=== PATIENT | male | born 1975 | race Caucasian/White ===

== ENCOUNTER 2016-10-25 18:54 | Inpatient (IN) | payer BC, OTHER ==
[~2016-10-25] VITALS: Ht 180.3 cm; Wt 69.4 kg
--- NOTE | 2016-10-25 19:58 | NUR ---
1956 PREADMISSION NOTE: 41 year old, well-nourished caucasion male seen in [facility], hugging 2 friends good-bye. Patient responds to nurse's greeting and introduction, with a handshake and, " I don't belong here really. I just drank for 3 days and my friends brought me here. I'm not drunk!" Patient denies any pre-existing medical or psychiatric history but he states that, " I had a focal seizure on a airplane, in 1999, brought on by anxiety. That's the only one". Patient denies any food or medication allergies and he states that he has brought no medications or contraband from home, nor is he taking any medications at home. Vital signs are: 98-101-18 119/88, O2 Sat 97%. Explanation given to patient about [facility] floor protocols. Patient is able to answer nurse's assess questions with some prompting and repeating of some questions, though he reeks of alcohol and is easily irritated, at which point, he curses and yells at nurse, before being redirected easily. Patient then takes nurse's hand and states, " Oh, I/m sorry to give you a hard time". Patient is presently stable enough to be admitted to [facility].
[2016-10-25 20:00] VITALS: BP 98/64
--- NOTE | 2016-10-25 20:12 | NUR ---
2011 ADMISSION NOTE: Patient admitted ambulatory from Intake to [facility] floor, room # 325. Gait is steady. Patient is oriented to person and reoriented easily to place, day, date, time and his personal situation. Patient states, " I don't know why I'm here. I've only been drinking for 3 days. I mean, really, I'm not drunk!". My friends brought me to the hospital just because they saw me drinking for 3 days!" Patient's color is pink and his skin is clean, warm, dry and intact. Lung sounds are clear bilaterally and active bowel sounds are noted X 4 abdominal Quads, per auscultation. Patient moves all his extremities fully WNL. Patient denies any pain or other discomforts at this time. Patient is 5 feet and 11 inches tall and he weighs 153 lbs, he states. Vital signs are 97.5-102-20 98/64, CIWA 11. Patient states that he has no PCP at this time and he denies any food or medication allergies. Patient is admitted for Alcohol withdrawal and he is is currently on PRN medications only, for any withdrawal symptoms per MD orders. Patient states that he has been drinking " a bottle of wine everyday for 3 days, though he is unable to specify exactly how much wine is in each bottle. He states that he last had " a bottle of wine this evening. Patient states that he his longest period of sobriety was 3 years, from 2011 to 2014, though he is unable to state just how long he has been drinking alcohol. Patient states, " Well, I had my first drink at age 22, that's all I know". Patient states that this is he has never been admitted to any treatment facility before today. Patient is overall moderately inebriated and he reeks of alcohol smell. He is able to maintain eye contact adequately when interacting with nurse, though he gets unnecessarily loud and curses and yells at nurse easily depending on assess questions he is asked. Patient states loudly and frequently, " Why are you asking me these stupid, intrusive, ridiculous questions!?" Patient noted to be very fidgety, anxious, easily agitated and emotionally labile at this time. Patient oriented to his immediate surroundings and nurse call light. Patient states that he has brought no medications with him and he denies taking any medications at home. Patient states loudly, " Hey, I am healthy!" Bed is locked and in lowest position, bed rails put up X 2 and call light within patient's easy reach.
[2016-10-25 20:39] LABS: *AMPHETAMINE, URINE NEGATIVE (NEGATIVE); *BARBITURATE, URINE NEGATIVE (NEGATIVE); *CANNABINOID, URINE NEGATIVE (NEGATIVE); *COCCAINE, URINE NEGATIVE (NEGATIVE); *OPIATE, URINE NEGATIVE (NEGATIVE); *PHENCYCLIDINE SCREEN,URINE NEGATIVE (NEGATIVE)
[2016-10-25] MEDS ORDERED: LOPERAMIDE HCL 2 MG CAPSULE PO PRN ×2 (20:45)
[2016-10-25] MEDS ORDERED: ONDANSETRON ODT 4 MG TAB.RAPDIS SL PRN (20:45)
[2016-10-25] MEDS ORDERED: DICYCLOMINE HCL 20 MG TABLET PO PRN (20:45)
[2016-10-25] MEDS ORDERED: ACETAMINOPHEN 325 MG TABLET PO PRN (20:45)
[2016-10-25] MEDS ORDERED: THIAMINE HCL 200 MG/2 ML VIAL IM ONE (20:45)
[2016-10-25] MEDS ORDERED: LORAZEPAM 1 MG TABLET PO PRN (20:45)
[2016-10-25] MEDS ORDERED: MAGNESIUM HYDROXIDE 30 ML LIQUID UDC PO PRN (20:45)
[2016-10-25] MEDS ORDERED: LORAZEPAM 2 MG/1 ML VIAL IM PRN (20:45)
[2016-10-25] MEDS ORDERED: IBUPROFEN 400 MG TABLET PO PRN (20:45)
[2016-10-25] MEDS ORDERED: MIRALAX 17 GM POWD.PACK PO PRN (20:45)
[2016-10-25] MEDS ORDERED: MAG HYDROX/AL HYDROX/SIMETH 30 ML LIQUID UDC PO PRN (20:45)
[2016-10-25 21:41] LABS: BASOPHILS # (AUTO) 0.1 K/uL (0.0-8.0); BASOPHILS % (AUTO) 0.9 % (0.0-2.0); EOSINOPHILS # (AUTO) 0.1 K/uL (0.0-0.7); EOSINOPHILS % (AUTO) 0.8 % (0.0-7.0); HEMATOCRIT 41.6 % (40-50); HEMOGLOBIN 14.5 G/DL (14.0-18.0); LYMPHOCYTES # (AUTO) 2.2 K/UL (0.8-4.8); MEAN CORPUSCULAR HGB CONC 35 g/dL (32.0-37.0); MEAN CORPUSCULAR VOLUME 86.2 FL (82.0-92.0); MONOCYTES # (AUTO) 0.6 K/UL (0.1-1.30); MONOCYTES % (AUTO) 8.1 % (0.0-11.0); NEUTROPHILS # (AUTO) 4.3 K/UL (1.8-8.9); NEUTROPHILS % (AUTO) 60.2 % (38.5-71.5); PLATELET COUNT (AUTO) 190 K/UL (150-450); RED BLOOD CELL COUNT(AUTO) 4.82 MIL/UL (4.7-6.1); WHITE BLOOD COUNT (AUTO) 7.3 K/UL (4.0-11.2)
[2016-10-25] MEDS: CLONIDINE HCL 0.1 MG TABLET PO PRN (21:58)
[2016-10-25 21:59] LABS: BILIRUBIN,TOTAL 0.2 mg/dL (0.2-1.0); CREATININE 0.8 mg/dL (0.6-1.3); MAGNESIUM 2.1 mg/dL (1.8-2.4); POTASSIUM 4.4 mmol/L (3.5-5.1); TOTAL PROTEIN, SERUM 7.5 g/dL (6.4-8.2)
[2016-10-25] MEDS: HYDROXYZINE PAMOATE 25 MG CAPSULE PO PRN (21:59)
[2016-10-25] MEDS ORDERED: HYDROXYZINE PAMOATE 25 MG CAPSULE ONE (22:07)
[2016-10-25] MEDS ORDERED: CLONIDINE HCL 0.1 MG TABLET ONE (22:07)
[2016-10-25 22:08] LABS: THYROID STIMULATING HORMONE 2.023 mIU/mL (0.358-3.740)
[2016-10-25] MEDS: diphenhydrAMINE 50 MG CAPSULE PO PRN (22:40)
[2016-10-25] MEDS ORDERED: LORAZEPAM 1 MG TABLET ONE (22:47)
[2016-10-25] MEDS ORDERED: diphenhydrAMINE 50 MG CAPSULE ONE (22:47)
[2016-10-26] VITALS: BP 101/61
[2016-10-26 04:00] VITALS: BP 115/66
--- NOTE | 2016-10-26 06:30 | NUR ---
0630 Patient slept a total of 6 hours and he had 1 void and no stools. Total intake was 500 ml p.o. Prn medications given noted separately per floor protocol. V/SS afebrile, CIWA at 0400 is 6. Patient is presently sleeping soundly with eyes closed and respirations deep, regular, stenorous and unlabored at 12.
--- NOTE | 2016-10-26 07:05 | NUR ---
Patient is awake and downstairs on hospital patio to have a smoke. Unable to assess CIWA at this time.
--- NOTE | 2016-10-26 07:10 | NUR ---
Start Of Shift Report received from coal sample tester RN Pt is a 41 y/o male admitted for ETOH. Pt is full code regular diet on fall and seizure precautions, pt reported a seizure 17 years ago denies any food or drug allergies.Pt denies any PMH. pt is currently not on a taper but has PRN medications in case of withdrawal symptoms. Pts last CIWA is 6 taken at 0400. Pt received PRN Ativan 2mg due to withdrawal symptoms. Medication effective per coal sample tester nurse. Pt also received PRN clonidine Vistaril and Benadryl, medications effective per coal sample tester RN. Pt slept a total of 6 hours. Patient received awake, alert and oriented x4, educated regarding plan of care for the day and medication regimen. All safety measures in place, call light kept within reach, will continue to monitor and provide support.
[2016-10-26 08:00] VITALS: BP 124/87
[2016-10-26] MEDS: LORAZEPAM 1 MG TABLET PO PRN ×3 (08:54→20:21)
[2016-10-26] MEDS: THIAMINE HCL 100 MG TABLET PO SCH (08:54)
[2016-10-26] MEDS: FOLIC ACID 1 MG TABLET PO SCH (08:54)
[2016-10-26] MEDS: MULTIVITAMINS,THERAPEUTIC TABLET PO SCH (08:54)
--- NOTE | 2016-10-26 08:54 | NUR ---
PRN MEDICATION Pt c/o Anxiety presented with agitation and restlessness CIWA 10 requested something for relief, non-pharmacological techniques interventions provided x3 and were not effective. PRN Ativan 1mg administered PO, educated pt about s/e of medication and when to contact nurse. all needs met, all safety measures in place, will continue to monitor.
[2016-10-26] MEDS ORDERED: TUBERCULIN,PURIF.PROT.DERIV. 5 TU/0.1 ML TEST ID ONE (09:00)
--- NOTE | 2016-10-26 09:45 | NUR ---
PPD Refusal Pt refused PPD, Patient educated about the hospital policies and that a PPD or a CXR is required upon admission. Pt requested to have a CXR instead. MD notified and aware, order placed for CXR 1 view for medical clearance for active TB. All safety measures in place will continue to monitor and provide support
--- NOTE | 2016-10-26 09:54 | NUR ---
PRN REASSESSMENT Medication effective pt pt reported relief, stating that he is no longer anxious CIWA at 8. all needs met will continue to monitor
[2016-10-26] MEDS ORDERED: LORAZEPAM 1 MG TABLET PO ONE (10:15)
--- NOTE | 2016-10-26 10:25 | NUR ---
ONETIME Ativan 2MG Upon assessment placed an order for a onetime dose of Ativan 2mg pts CIWA is 10, will continue to monitor
[2016-10-26 12:00] VITALS: BP 125/84
[2016-10-26 16:00] VITALS: BP 126/87
--- NOTE | 2016-10-26 16:56 | NUR ---
Therapist notified client of group times. Client refused to attend.
--- NOTE | 2016-10-26 17:28 | NUR ---
PRN MEDICATION Pt c/o Anxiety presented with agitation and restlessness CIWA 6 requested something for relief, non-pharmacological techniques interventions provided x3 and were not effective. PRN Ativan 1mg administered PO, educated pt about s/e of medication and when to contact nurse. all needs met, all safety measures in place, will continue to monitor.
--- NOTE | 2016-10-26 18:28 | NUR ---
PRN REASSESSMENT Medication effective pt reported relief, stating that he is no longer anxious CIWA at 4. all needs met will continue to monitor
--- NOTE | 2016-10-26 19:11 | NUR ---
End Of Shift Report given to integrated circuit layout designer RN. Pt is a 41 y/o male admitted for ETOH. Pt is full code regular diet on fall and seizure precautions, pt reported a seizure 17 years ago denies any food or drug allergies. Pt denies any PMH. pt is currently not on a taper but has PRN medications in case of withdrawal symptoms. Pts last CIWA is 4 taken at 1600. Pt received PRN Ativan 1mg Twice per CIWA score scale. Pt also received a onetime order of Ativan 2mg. Medications effective. Pt refused PPD and had a chest X-ray done, results pending MD aware. Detox medication effective at reducing withdrawal symptoms. Patient encouraged to attend group therapies/sessions to learn new coping skills to recent relapse, patient denies SI/HI. Pt ate all of his meals, total fluid intake was 1969ml with 10 void and 2 bowel movements. Call light kept within reach. Patient endorsed to integrated circuit layout designer nurse, all pertinent information discussed.
[2016-10-26 20:00] VITALS: BP 128/93
--- NOTE | 2016-10-26 20:00 | NUR ---
1999 Patient received awake, alert and ambulating from [facility] kitchen to his room # 325. Gait is steady and brisk. Patient greets nurse with, " Hi, are you here now?" Patient is oriented to person, place, day, date, time and his personal situation. Patient's color is pink and his skin is clean, warm, dry and intact. Lung sounds are clear bilaterally and active bowel sounds are noted X 4 abdominal Quads, per auscultation. Patient states that though he is feeling better today, he still isn't feeling like himself yet. Vital signs are: 99.7 (patient has just sipped large amount of hot coffee) 82-20 128/93, O2 Sat 98%, CIWA 2. Patient states that he did attend PM group tonight and he states further that he has been eating his regular diet tray 'okay', but really "killing the vitamin, electrolyte fluids a lot today". Patient was admitted on 10/26/16 for Alcohol withdrawal and he is currently on PRN medications only for relief of withdrawal symptoms. Patient states that he is going to go downstairs to have a smoke break soon. Patient's mood/affect is quiet and slightly subdued, though he is cooperative and verbally appropriate when interacting with nurse. Patient offers no requests or c/o anything at this time. Fall/Seizure precautions continue. Bed is locked and in lowest position, padded bed rails are up X 2 and call light within patient's easy reach.
[2016-10-26] MEDS: CLONIDINE HCL 0.1 MG TABLET PO PRN (20:22)
--- NOTE | 2016-10-26 20:22 | NUR ---
PRN MEDICATIONS: Prn Motrin 400 mg p.o. given for c/o generalized and bilateral legs discomfort, 5/10 pain scale. Prn Catapres 0.1 mg p.o. given per request for c/o increasing anxiety and agitation. Patient states, " I still don't feel quite right. How long does it take for you to get back to normal?"
--- NOTE | 2016-10-26 21:22 | NUR ---
REASSESSMENT PRN MEDICATIONS: Patient is downstairs to hospital patio for smoke break. Unable to assess patient at this time.
[2016-10-26] MEDS: diphenhydrAMINE 50 MG CAPSULE PO PRN (22:26)
--- NOTE | 2016-10-26 22:26 | NUR ---
PRN MEDICATIONS: Prn Benadryl 50 mg p.o. given per request for sleep medication. Prn Tylenol 650 mg p.o. given per c/o " achey back and leg discomfort, 4-5/10 pain scale.
[2016-10-26] MEDS: HYDROXYZINE PAMOATE 25 MG CAPSULE PO PRN (22:27)
--- NOTE | 2016-10-26 22:27 | NUR ---
PRN MEDICATION: Prn Vistaril 50 mg p.o. given for c/o anxiety.
--- NOTE | 2016-10-26 23:27 | NUR ---
REASSESSMENT PRN MEDICATIONS: Patient is sleeping soundly with eyes closed and respirations deep, even, stenorous, unlabored. at 12.
[2016-10-27] VITALS: BP 120/88
[2016-10-27 04:00] VITALS: BP 119/90
--- NOTE | 2016-10-27 06:30 | NUR ---
0630 Patient slept a total of 6 hours and he had 2 voids and no stools. Total intake was 1,190 ml p.o. Prn medications given noted separately per floor protocol. V/SS afebrile, CIWA at 0400 was 2. Patient is presently resting comfortably with eyes closed and respirations deep, even, unlabored at 12. Patient is in stable condition at this time.
--- NOTE | 2016-10-27 07:06 | NUR ---
Start of Shift Endorsement received from nightshift nurse. Pt is a 41 y/o male admitted for alcohol dependence. Pt is being managed with PRN medications. Pt is tolerating the taper well AEB CIWA 2 at midnight. PT reports sleeping 7 hours. VS WNL. Full Code. . PT is alert and oriented x4. Pt is in STABLE condition at this time. Remains compliant with medication and diet regimen. All needs have been met, All safety measures in place per hospital policy. Bed in lowest position, side rails up x2, call-light within reach. Will continue to monitor
[2016-10-27 08:00] VITALS: BP 112/89
[2016-10-27] MEDS: FOLIC ACID 1 MG TABLET PO SCH (09:18)
[2016-10-27] MEDS: THIAMINE HCL 100 MG TABLET PO SCH (09:18)
[2016-10-27] MEDS: MULTIVITAMINS,THERAPEUTIC TABLET PO SCH (09:18)
[2016-10-27] MEDS: CLONIDINE HCL 0.1 MG TABLET PO PRN (09:25)
--- NOTE | 2016-10-27 09:25 | NUR ---
PRN Medication Administered PRN Clonidine for chills and sweats.
--- NOTE | 2016-10-27 10:00 | NUR ---
Medication Re-assessment Pt reports relief from chills and sweats. Medication was effective.
[2016-10-27 12:00] VITALS: BP 110/66
[2016-10-27 16:00] VITALS: BP 122/78
--- NOTE | 2016-10-27 17:07 | NUR ---
Therapist encouraged client to attend group therapy sessions, and therapist informed client that groups are daily at 11am and 3:30pm in the rec room. Client stated that he would attend depending on how he was feeling.
[2016-10-27 17:46] LABS: *AMPHETAMINE, URINE NEGATIVE (NEGATIVE); *BARBITURATE, URINE NEGATIVE (NEGATIVE); *CANNABINOID, URINE NEGATIVE (NEGATIVE); *COCCAINE, URINE NEGATIVE (NEGATIVE); *OPIATE, URINE NEGATIVE (NEGATIVE); *PHENCYCLIDINE SCREEN,URINE NEGATIVE (NEGATIVE)
--- NOTE | 2016-10-27 19:05 | NUR ---
End of Shift Endorsement given to nightshift nurse. Pt is a 41 y/o male admitted for alcohol dependence. Pt is being managed with PRN medications. Pt is tolerating the taper well AEB CIWA 1 at 1600. PT received PRN Clonidine for chills and sweats. PT participated in activities. Pt is scheduled to be discharged on 10/28/16. All discharge documentation has been completed, discharge education has been provided. Pt reports readiness for discharge. Intake: 2700ml, Void x5, BM x1. VS WNL. Full Code. . PT is alert and oriented x4. Pt is in STABLE condition at this time. Remains compliant with medication and diet regimen. All needs have been met, All safety measures in place per hospital policy. Bed in lowest position, side rails up x2, call-light within reach. Will continue to monitor
[2016-10-27 20:00] VITALS: BP 120/61
[2016-10-27] MEDS: diphenhydrAMINE 50 MG CAPSULE PO PRN (21:34)
[2016-10-27] MEDS: HYDROXYZINE PAMOATE 25 MG CAPSULE PO PRN (21:34)
--- NOTE | 2016-10-27 21:34 | NUR ---
PRN MEDICATIONS: Prn Vistaril 50 mg p.o. given per request for c/o anxiety. Prn Benadryl 50 mg p.o. given per request for sleep medication.
--- NOTE | 2016-10-27 22:34 | NUR ---
REASSESSMENT PRN MEDICATION: Patient is resting comfortably with eyes closed and respirations quiet, even, unlabored at 12.
[2016-10-28] VITALS: BP 120/90
--- NOTE | 2016-10-28 04:00 | NUR ---
Patient refused to be awakened for V/S to be done at this time.
--- NOTE | 2016-10-28 07:31 | NUR ---
START OF SHIFT Received report from weight shifter nurse. 41 year old male patient admitted on 09/29/16 for ETOH withdrawals. Pt is A/O x4, and denies primary medical history. Denies allergies, full code and regular diet. Pt remains safe and seizure free throughout hospitalization. Symptoms of withdrawals have been tolerated well with ordered medications. Pt has provided urine for toxicology screening upon discharge. Skin remains warm, dry and intact. Most recent CIWA is 1 at 0000. PRN Vistaril and Benadryl administered and effective. Pt slept for 6 hours throughout night. V/S remain WNL. Pt did not bring any home medication. All needs have been met at this time. Pt is stable. Will continue to monitor.
[2016-10-28 07:38] LABS: HEPATITIS B SURFACE AG Negative (Negative)
[2016-10-28 08:00] VITALS: BP 136/90
--- NOTE | 2016-10-28 08:00 | NUR ---
PRN MEDICATIONS PRN Vistaril and Clonidine administered for increased anxiety not relieved with nonpharmacological methods. Pt education provided, will reassess.
[2016-10-28 08:07] VITALS: BP 136/90
[2016-10-28] MEDS: MULTIVITAMINS,THERAPEUTIC TABLET PO SCH (08:07)
[2016-10-28] MEDS: CLONIDINE HCL 0.1 MG TABLET PO PRN (08:07)
[2016-10-28] MEDS: HYDROXYZINE PAMOATE 25 MG CAPSULE PO PRN (08:07)
[2016-10-28] MEDS: THIAMINE HCL 100 MG TABLET PO SCH (08:07)
[2016-10-28] MEDS: FOLIC ACID 1 MG TABLET PO SCH (08:07)
--- NOTE | 2016-10-28 08:28 | NUR ---
D/C NOTES Pt is A/O x4. V/S remain WNL. Pt denies SI/HI or hallucinations. Pt shows no s/s of acute withdrawal at this time, and is stable. has medically cleared pt for d/c. Education on Hepatitis C, smoking cessation and medication side effects provided. Pt verbalizes understanding. All pt belongings are in belonging bag, there are no prescriptions, pt did not have any home medications. Refuses PNU vaccination. Pt is being accompanied by SCREEN TACKER at this time to be escorted to lobby, pt to contact own transport, list of resources available. All needs met.
== END 2016-10-28 08:28 | disposition other institution (70) | DRG 895 ==
LOC: SRC 19:00
PROVIDERS: ADMIT Internal Medicine; ATTEND Internal Medicine
PROC: HZ2ZZZZ Detoxification Services for Substance Abuse Treatment (ICD-10-PCS; principal; 2016-10-25)
PROC: HZ31ZZZ Individual Counseling for Substance Abuse Treatment, Behavioral (ICD-10-PCS; 2016-10-27)
DX: F10.230 Alcohol dependence with withdrawal, uncomplicated (principal); F10.220 Alcohol dependence with intoxication, uncomplicated; K70.10 Alcoholic hepatitis without ascites; Y90.8 Blood alcohol level of 240 mg/100 ml or more; F17.210 Nicotine dependence, cigarettes, uncomplicated; Z83.3 Family history of diabetes mellitus; Z81.1 Family history of alcohol abuse and dependence
CPT/HCPCS: 36415; 71010; 80307; 83690; 83735; 84443; 85025; 86580; 86705; 87340; 87806; A4663; G6040-TC; J3411; Q0163